=== PATIENT | male | born 1985 | race Caucasian/White ===

== ENCOUNTER 2020-01-24 18:00 | Emergency (ER) | payer BC ==
[~2020-01-24 18:00] MED LIST: Lidocaine 1% with EPINEPHrine 1:100,000 20 ML MDV INJECT ONE
[2020-01-24] MEDS ORDERED: Cephalexin 250 MG Cap PO ONE ×2 (18:21→18:22)
[2020-01-24] MEDS ORDERED: Bacitracin/Neomycin/Polymyxin B Oint 0.9 GM U/D Packet TOP ONE (18:26)
--- NOTE | 2020-01-24 18:42 | EDM.PDOC ---
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 He was using a jukebox coin collector knife with a clean new sharp blade. He noticed something white deep in the site before it bleed, therefore applied pressure and came here right away. Denies any weakness or any loss of strength. 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 Tdap is not up to date. Review of Systems - Review of Systems Review Of Systems: See Below Constitutional: Reports: Chills, Fever Eyes: Reports: No Symptoms Ears: Reports: No Symptoms Nose: Reports: Congestion Mouth/Throat: Reports: No Symptoms. Denies: Pain Respiratory: Reports: Cough, Other (non productive cough). Denies: Shortness of Breath Cardiovascular: Reports: No Symptoms GI/Abdominal: Reports: No Symptoms Musculoskeletal: Reports: No Symptoms Skin: Reports: No Symptoms Neurological: Reports: No Symptoms Psychiatric: Reports: No Symptoms ED EXAM, GENERAL - Physical Exam Exam: See Below Exam Limited By: No Limitations General Appearance: Alert, WD/WN, No Apparent Distress Ears: Normal External Exam, Normal Canal, Hearing Grossly Normal, Normal TMs Ear Exam: Bilateral Ear: Auricle Normal, Canal Normal, TM normal Nose: Normal Inspection Throat/Mouth: Normal Inspection, Normal Oropharynx Head: Atraumatic, Normocephalic Neck: Normal Inspection, Supple, Non-Tender Respiratory/Chest: No Respiratory Distress, Lungs Clear, Normal Breath Sounds Cardiovascular: Normal Peripheral Pulses, Regular Rate, Rhythm, No JVD Extremities: Normal Inspection, Normal Range of Motion Psychiatric: Normal Affect, Normal Mood Skin Exam: Warm, Dry, Wound/Incision, Other (2.5 cm laceration , deep, involving the tendon sheath of the 4th digit, no tendon deficitis, no decreased strength) Lymphatic: No Adenopathy ED TRAUMA EXTREMITY PROCEDURES - Laceration/Wound Repair Right Dorsal Hand Appearance: Linear, Clean Distal NVT: Neuro & Vascular Intact, Other (involving tendon sheath) Anesthetic Type: Local Local Anesthesia - Lidocaine (Xylocaine): 1% with EPI Local Anesthetic Volume: 4cc Skin Prep: Providone-Iodine (Betadine), Saline Saline Irrigation (cc's): 250 Exploration/Debridement/Repair: Wound Explored, In a Bloodless Field, Explored to Base, No Foreign Material Found, Wound Margins Revised Closed With: Sutures Suture Size: 4-0 # of Sutures: 5 Suture Type: Nylon Sterile Dressing Applied: Nurse Tetanus Status Addressed: Yes Complication Description: antibiotics prescribed involing tendon sheath, patient refused updating tdap despite understanding the risks such as for not updating it. Course - Orders/Labs/Meds Meds: Medications Discontinued Medications Generic Name Dose Route Start Last Admin Trade Name Kwabena PRN Reason Stop Dose Admin Cephalexin 500 mg 01/24/20 18:21 01/24/20 18:36 Keflex PO 01/24/20 18:22 500 mg ONETIME ONE Administration Cephalexin 10,500 mg 01/24/20 18:22 Keflex PO 01/24/20 18:23 ONETIME ONE Lidocaine/Epinephrine 20 ml 01/24/20 18:00 01/24/20 18:37 Xylocaine 1% With Epinephrine 1:100,000 INJECT 01/24/20 18:01 4 ml ONETIME ONE Administration Neomycin/Polymyxin/Bacitracin 1 each 01/24/20 18:26 01/24/20 18:37 Triple Antibiotic Oint TOP 01/24/20 18:27 1 each ONETIME ONE Administration - Re-Assessments/Exams Free Text/Narrative Re-Assessment/Exam: 01/24/20 18:50 he does have covid-19 related symptoms, he was tested previously, results pending, denies any pneumonia like symptoms, vitals normal, lungs clear, full PPE was used during the visit. Departure - Departure Time of Disposition: 18:33 Disposition: Home, Self-Care 01 Condition: Good Clinical Impression: Laceration of right hand involving tendon - Discharge Information *PRESCRIPTION DRUG MONITORING PROGRAM REVIEWED*: No *COPY OF PRESCRIPTION DRUG MONITORING REPORT IN PATIENT SANDRA: No Instructions: Laceration Care, Adult, Sutures, [place], or Adhesive Wound Closure Referrals: PCP,None [Primary Care Provider] - Additional Instructions: keep it clean and dry, cover in dirty environments, avoid strenuous use with the hand, may shower tonight, no tub baths or looney water. take antibitoic 1 pill three times per day for 7 days, ensure finish full course. f/u in the clinic in 10 days for suture removal you should really consider updated tetanus vaccine, its due every 10 years.
== END 2020-01-24 18:40 | disposition home or self-care (01) ==
LOC: KA.ED 18:00
DX: S66.921A Laceration of unspecified muscle, fascia and tendon at wrist and hand level, right hand, initial encounter (principal); R05 Cough; W26.0XXA Contact with knife, initial encounter
CPT/HCPCS: 12001; 99282; 99283; A9270-GY